=== PATIENT | female | born 1975 | race Caucasian/White ===

== ENCOUNTER 2018-06-23 15:02 | Emergency (ER) | payer MEDICAID ==
[2018-06-23] MEDS: HYDROCODONE/APAP (5/325) TAB PO (17:57)
[2018-06-23] MEDS: ONDANSETRON (ODT) 4 MG TAB ODT (17:57)
[2018-06-23] MEDS: ACETAMINOPHEN 325 MG TAB PO (18:05)
== END 2018-06-23 19:30 | disposition home or self-care (01) ==
LOC: FTE 15:02
DX: M54.6 Pain in thoracic spine (principal); R51 Headache
CPT/HCPCS: 70450; 72072; 72100; 76705; 99285-25

== ENCOUNTER 2018-12-18 17:44 | Emergency (ER) | payer MEDICAID ==
[2018-12-18 20:17] LABS: URINE BLOOD (Dip) POC 3+ (NEGATIVE); URINE GLUCOSE (Dip) POC Negative (NEGATIVE); URINE KETONES (Dip) POC Negative (NEGATIVE); URINE LEUKOCYTE EST (Dip) POC Negative (NEGATIVE); URINE NITRITE (Dip) POC Negative (NEGATIVE); URINE TOTAL PROTEIN POC Negative (NEGATIVE)
[2018-12-18 20:17] LABS: URINE PH (Dip) POC 6.5 (5.0-8.5)
[2018-12-18 20:26] LABS: ADD MAN DIFF? NO
[2018-12-18 20:27] LABS: WHITE BLOOD COUNT 10.4 10^3/ul (4.8-10.8)
[2018-12-18 20:27] LABS: BASOPHIL # 0.1 10^3/ul (0.0-0.1); BASOPHILS % 0.6 % (0.0-2.0); EOSINOPHILS # 0.1 10^3/ul (0.0-0.5); EOSINOPHILS % 0.6 % (0.0-7.0); HEMATOCRIT 44.1 % (37.0-47.0); HEMOGLOBIN 14.1 g/dl (12.0-16.0); LYMPHOCYTES # 3.5 10^3/ul (0.8-2.9); LYMPHOCYTES % 33.3 % (15.0-51.0); MEAN CORPUSCULAR HEMOGLOBIN 28.4 pg (29.0-33.0); MEAN CORPUSCULAR VOLUME 88.7 fl (82.0-101.0); MEAN PLATELET VOLUME 10.9 fl (7.4-10.4); MONOCYTE # 0.5 10^3/ul (0.3-0.9); MONOCYTES % 5.1 % (0.0-11.0); NEUTROPHIL # 6.3 10^3/ul (1.6-7.5); NEUTROPHILS % 60.2 % (39.0-77.0); PLATELET COUNT 264 10^3/UL (140-415); RED BLOOD COUNT 4.97 10^6/ul (4.20-5.40)
[2018-12-18 20:36] LABS: ALANINE AMINOTRANSFERASE 57 IU/L (13-69); ALBUMIN 5.1 g/dl (3.3-4.9); ALKALINE PHOSPHATASE 90 IU/L (42-121); ANION GAP 13 (5-13); ASPARTATE AMINO TRANSFERASE 32 IU/L (15-46); BILIRUBIN,INDIRECT 0.1 mg/dl (0-1.1); BILIRUBIN,TOTAL 0.1 mg/dl (0.2-1.3); BLOOD UREA NITROGEN 14 mg/dl (7-20); CALCIUM 10.6 mg/dl (8.4-10.2); CARBON DIOXIDE 27 mmol/L (21-31); CHLORIDE 101 mmol/L (97-110); CREATININE 0.56 mg/dl (0.44-1.00); Estimated GFR > 60 mL/min (>60); GLUCOSE 112 mg/dl (70-220); LIPASE 49 U/L (23-300); POTASSIUM 3.9 mmol/L (3.5-5.1); SODIUM 141 mmol/L (135-144)
[2018-12-18] MEDS: morphine 2 MG INJ IV (20:59)
[2018-12-18] MEDS: ONDANSETRON 4 MG INJ IV (20:59)
== END 2018-12-18 22:06 | disposition home or self-care (01) ==
LOC: E/R 17:44
DX: N23 Unspecified renal colic (principal)
CPT/HCPCS: 36415; 76705; 80053; 81003; 81025; 83690; 85025; 96374; 96375; 99285-25